=== PATIENT | male | born 1985 | race Caucasian/White ===

== ENCOUNTER 2021-09-18 17:08 | Emergency (ER) | payer BC ==
[~2021-09-18] VITALS: Ht 177.8 cm; Wt 94.8 kg
[2021-09-18 17:19] VITALS: BP 157/82
--- NOTE | 2021-09-18 17:24 | NUR ---
PT AMB TO BED 11.
--- NOTE | 2021-09-18 17:48 | NUR ---
35 y/o male bib self from home, c/o low back pain that started 4 days ago. skin is pink/warm/dry. a&o x4 with even and steady gait. lungs clear bl, heart rate even and regular. pt denies dysuria, hematuria, urinary frequency or retention, or anyone sick in the household with the same symptoms. pt denies any fever, cp, sob, or cough at this time. pt states pain is 5/10 at this time. patient positioned for comfort. hob elevated. bed down. ermd made aware of pt. pmh: denies nka med: denies
--- NOTE | 2021-09-18 17:53 | NUR ---
ibarhima judd in room for pt evaluation at this time
[2021-09-18] MEDS ORDERED: KETOROLAC 30 MG/ML VIAL IM ONE (18:00)
[2021-09-18] MEDS ORDERED: CYCL-711 PO (18:24)
[2021-09-18] MEDS ORDERED: LID5T TP (18:24)
[2021-09-18] MEDS ORDERED: IBUP-2213 PO (18:24)
--- NOTE | 2021-09-18 18:33 | NUR ---
Patient discharged with v/s stable. Written and verbal after care instructions given and explained. Patient alert, oriented and verbalized understanding of instructions. ambulatory with steady gait. All questions addressed prior to discharge. ID band removed. Patient advised to follow up with PMD. Rx of ibuprofen, lidocaine, flexeril (sent) given. Patient educated on indication of medication including possible reaction and side effects. Opportunity to ask questions provided and answered.
[2021-09-18 18:34] VITALS: BP 157/82
== END 2021-09-18 18:33 | disposition home or self-care (01) ==
LOC: MED 17:08 → EDSEX 17:08 → MED 18:33
DX: S39.012A Strain of muscle, fascia and tendon of lower back, initial encounter (principal); Z79.899 Other long term (current) drug therapy; X58.XXXA Exposure to other specified factors, initial encounter; Y93.89 Activity, other specified; Y92.89 Other specified places as the place of occurrence of the external cause; Y99.8 Other external cause status
CPT/HCPCS: 81002; 96372; 99283; J1885